=== PATIENT | male | born 1995 | race African-American/Black ===

== ENCOUNTER 2024-12-01 16:43 | Emergency (ER) | payer OTHER, MEDICAID ==
[~2024-12-01] VITALS: Ht 180.3 cm; Wt 100.0 kg
[2024-12-01 17:02] VITALS: O2SAT 100
[2024-12-01] MEDS ORDERED: KETOROLAC 15MG/ML VIAL IM ONE (20:30)
[2024-12-01] MEDS ORDERED: NAPR-1176 MT (21:41)
[2024-12-01] MEDS: KETOROLAC 15MG/ML VIAL IM SCH (21:44)
[2024-12-01 22:05] VITALS: BP 139/97; PULSE 93; RESP 16; TEMP 36.7; O2SAT 99
== END 2024-12-01 22:09 | disposition home or self-care (01) ==
LOC: ER 16:43
DX: S62.303A Unspecified fracture of third metacarpal bone, left hand, initial encounter for closed fracture (principal); R60.0 Localized edema; Z79.1 Long term (current) use of non-steroidal anti-inflammatories (NSAID); V49.9XXA Car occupant (driver) (passenger) injured in unspecified traffic accident, initial encounter; Y93.89 Activity, other specified; Y92.410 Unspecified street and highway as the place of occurrence of the external cause; Y99.8 Other external cause status
CPT/HCPCS: 99283; 73130; 29125; 96372; J1885; A6449